=== PATIENT | female | born 1975 | race Caucasian/White ===

== ENCOUNTER 2017-01-26 16:17 | Outpatient (CLI) | payer OTHER ==
--- NOTE | 2017-01-27 10:45 | RAD ---
TWO VIEWS OF THE CHEST: COMPARISON: None. HISTORY: Bronchitis. FINDINGS: Two views of the chest show normal sized cardiomediastinal silhouette. There is no evidence of conso lidation, mass, or pleural effusion. The bones are unremarkable. IMPRESSION: No evidence of acute cardiopulmonary disease. POS: [facility]
== END 2017-01-26 16:18 | disposition home or self-care (01) ==
LOC: RAD-FRANK 16:17
PROVIDERS: ATTEND Nurse Practitioner Family
DX: J20.9 Acute bronchitis, unspecified (principal)
CPT/HCPCS: 71020

== ENCOUNTER 2017-05-24 15:54 | Outpatient (CLI) | payer OTHER ==
--- NOTE | 2017-05-24 19:11 | RAD ---
TWO VIEWS CHEST: 05/24/17 PROVIDED CLINICAL HISTORY: Shortness of breath. FINDINGS: Comparison 01/26/17. The cardiac and mediastinal silhouette is within normal limits. The lungs appear clear. No pleural fl uid or pneumothorax apparent. IMPRESSION: 1. No evidence for an acute cardiopulmonary process. POS: [facility]
== END 2017-05-24 15:55 | disposition home or self-care (01) ==
LOC: RAD-FRANK 15:54
PROVIDERS: ATTEND Nurse Practitioner Family
DX: R06.2 Wheezing (principal)
CPT/HCPCS: 71046

== ENCOUNTER 2017-08-18 14:40 | Outpatient (CLI) | payer OTHER ==
--- NOTE | 2017-08-18 15:52 | RAD ---
TWO VIEW CHEST: COMPARISON: 05/24/17. CLINICAL HISTORY: Wheezing and shortness of breath. FINDINGS: No consolidation, effusion, or pneumothorax. Cardiac silhouette is normal in size. Osseous structur es are intact. There is mild stable biapical pleural irregularity. IMPRESSION: No focal consolidation. POS: [facility]
== END 2017-08-18 14:41 | disposition home or self-care (01) ==
LOC: RAD-FRANK 14:40
PROVIDERS: ATTEND Nurse Practitioner Family
DX: R06.2 Wheezing (principal)
CPT/HCPCS: 71046

== ENCOUNTER 2018-02-13 13:30 | Outpatient (CLI) | payer OTHER ==
--- NOTE | 2018-02-13 14:47 | RAD ---
LUMBAR SPINE 3 VIEWS: Date: 02/13/18 HISTORY: Pain. Fall. FINDINGS: Five lumbar-type vertebral bodies. Vertebral body height is maintained. No significant loss of disc s pace height. Straightening of normal lumbar lordosis. No spondylolisthesis or spondylolysis. Minimal osteophyte formation along the superior end plate of L3. IMPRESSION: No post-traumatic change. POS: [facility]
== END 2018-02-13 13:31 | disposition home or self-care (01) ==
LOC: RAD-FRANK 13:30
PROVIDERS: ATTEND Nurse Practitioner Family
DX: M54.5 Low back pain (principal)
CPT/HCPCS: 72100

== ENCOUNTER 2018-03-06 11:09 | Outpatient (CLI) | payer OTHER ==
--- NOTE | 2018-03-06 13:12 | RAD ---
TWO VIEWS CHEST: Comparison: 08-18-17 History: Cough, shortness of breath. FINDINGS: Two views of the chest show normal sized cardiomediastinal silhouette. There is no evidence of consol idation, mass, or pleural effusion. The bones are unremarkable. IMPRESSION: No evidence of acute cardiopulmonary disease. POS: [facility]
== END 2018-03-06 11:10 | disposition home or self-care (01) ==
LOC: RAD-FRANK 11:09
PROVIDERS: ATTEND Nurse Practitioner Family
DX: R05 Cough (principal); R06.02 Shortness of breath
CPT/HCPCS: 71046

== ENCOUNTER 2018-05-01 08:15 | Outpatient (CLI) | payer OTHER ==
--- NOTE | 2018-05-01 09:35 | RAD ---
FOUR VIEWS LEFT ELBOW: HISTORY: Pain. Fall. COMPARISON: None. FINDINGS: No fracture. No cortical irregularity. Joint spaces are preserved. No joint effusion. IMPRESSION: No posttraumatic change. POS: [facility]
== END 2018-05-01 08:16 | disposition home or self-care (01) ==
LOC: RAD-FRANK 08:15
PROVIDERS: ATTEND Nurse Practitioner Family
DX: M79.602 Pain in left arm (principal)

== ENCOUNTER 2018-11-29 13:46 | Outpatient (CLI) | payer OTHER ==
--- NOTE | 2018-11-29 14:26 | RAD ---
PA AND LATERAL VIEWS CHEST: Date: 11/29/18 HISTORY: Exacerbation of asthma. FINDINGS: Comparison made with exam of 03/06/18. The heart size is normal. The lungs are well expanded without focal areas of consolidation, pneumotho races, or pleural effusions. No acute osseous abnormalities are seen. IMPRESSION: No radiographic evidence of acute cardiopulmonary process. POS: [facility]
== END 2018-11-29 13:47 | disposition home or self-care (01) ==
LOC: RAD-FRANK 13:46
PROVIDERS: ATTEND Nurse Practitioner Family
DX: J45.901 Unspecified asthma with (acute) exacerbation (principal)
CPT/HCPCS: 71046

== ENCOUNTER 2020-06-25 15:57 | Outpatient (CLI) | payer OTHER ==
--- NOTE | 2020-06-25 16:05 | RAD ---
Chest 2 views HISTORY: Wheezing. Cough. COMPARISON: 11/29/2018. FINDINGS: Cardiac silhouette and pulmonary vasculature are unremarkable. Mediastinum is midline. No confluent airspace consolidation, pneumothorax, or pleural fluid. IMPRESSION : No abnormalities are demonstrated.
== END 2020-06-25 15:58 | disposition home or self-care (01) ==
LOC: RAD-FRANK 15:57
PROVIDERS: ATTEND Nurse Practitioner Family
DX: R06.2 Wheezing (principal)
CPT/HCPCS: 71046

== ENCOUNTER 2021-03-10 15:35 | Outpatient (CLI) | payer BC | END 2021-03-10 15:36 | disposition home or self-care (01) | LOC: RAD-FRANK 15:35 | PROVIDERS: ATTEND Nurse Practitioner Family | DX: M54.50 Low back pain, unspecified (principal) | CPT/HCPCS: 72100 ==

== ENCOUNTER 2022-06-14 09:55 | Outpatient (CLI) | payer BC | END 2022-06-14 09:56 | disposition home or self-care (01) | LOC: RAD-FRANK 09:55 | PROVIDERS: ATTEND Nurse Practitioner Family | DX: R06.02 Shortness of breath (principal) | CPT/HCPCS: 71046 ==

== ENCOUNTER 2022-07-29 08:01 | Outpatient (CLI) | payer BC | END 2022-07-29 08:02 | disposition home or self-care (01) | LOC: SCSMRI 08:01 | PROVIDERS: ATTEND Nurse Practitioner Family | DX: M54.14 Radiculopathy, thoracic region (principal); M54.12 Radiculopathy, cervical region | CPT/HCPCS: 72141; 72146 ==